=== PATIENT | female | born 1980 | race Caucasian/White ===

== ENCOUNTER 2020-04-20 16:52 | Emergency (ER) | payer OTHER ==
[~2020-04-20] VITALS: Ht 152.4 cm; Wt 60.3 kg
[2020-04-20 17:08] VITALS: Ht 152.4 cm; Wt 60.3 kg
[2020-04-20 18:16] VITALS: BP 131/88
== END 2020-04-20 18:16 | disposition home or self-care (01) ==
LOC: ED 16:52
DX: S05.01XA Injury of conjunctiva and corneal abrasion without foreign body, right eye, initial encounter (principal); Z98.51 Tubal ligation status; Z90.49 Acquired absence of other specified parts of digestive tract; X58.XXXA Exposure to other specified factors, initial encounter; Y93.89 Activity, other specified; Y92.89 Other specified places as the place of occurrence of the external cause; Y99.8 Other external cause status